=== PATIENT | male | born 1965 | race Caucasian/White ===

== ENCOUNTER → 2017-10-31 | Outpatient (CLI) | payer OTHER ==
[~2017-10-31] MED LIST: NOHOMEMEDICATIONS
--- NOTE | 2017-10-31 14:29 | 2DMMODE ---
[place] [address] 2 D/M-MODE ECHOCARDIOGRAM Name: MARIBELL JORDAN Room: [facility]#: [id number] Admission: 10/31/17 Attend Phys: Fran Rollins, Discharge: Date of : 61 Date of Service: 10/31/17 1428 Report #: [id number] THIS REPORT FOR: //name// APPROVED REPORT Study performed: 10/31/2017 08:13:28 EXAM: Comprehensive 2D, Doppler, and color-flow Echocardiogram Patient Location: Out-Patient Status: routine BSA: 2.07 HR: 80 bpm BP: 140/98 mmHg Other Information Study Quality: Good Indications Abnormal ECG 2D Dimensions LVEF(%): 73.41 (>50%) IVSd: 17.75 (7-11mm) LVOT Diam: 20.10 (18-24mm) LVDd: 45.37 mm PWd: 11.28 (7-11mm) Ascending Ao: 31.56 (22-36mm) LVDs: 26.19 (25-40mm) Aortic Root: 28.78 mm Varma's LVEF: 73.41 % Volumes Left Atrial Volume (Systole) LA ESV Index: 15.40 mL/m2 Aortic Valve AoV Peak Martinez.: 0.99 m/s AO Peak Gr.: 3.92 mmHg LVOT Max P.00 mmHg AO Mean Gr.: 2.16 mmHg LVOT Mean P.54 mmHg LVOT Max V: 0.87 m/s AO V2 VTI: 17.13 cm LVOT Mean V: 0.57 m/s ARCENIO (VTI): 3.17 cm2 LVOT V1 VTI: 17.10 cm Mitral Valve E/A Ratio: 0.73 MV Decel. Time: 174.04 [place] [address] 2 D/M-MODE ECHOCARDIOGRAM Name: MARIBELL JORDAN Room: [facility]#: [id number] Admission: 10/31/17 Attend Phys: Fran Rollins, Discharge: Date of : 61 Date of Service: 10/31/17 1428 Report #: [id number] MV E Max Martinez.: 0.51 m/s MV PHT: 50.47 ms MVA (PHT): 4.36 cm2 TDI E/Lateral E': 10.20 E/Medial E': 10.20 Medial E' Martinez.: 0.05 m/s Lateral E' Martinez.: 0.05 m/s Pulmonary Valve PV Peak Martinez.: 0.96 m/s PV Peak Gr.: 3.68 mmHg Left Ventricle The left ventricle is normal size. There is normal LV segmental wall motion. Moderate basal septal hypertrophy is present. Apical hypertrophy is present. Left ventricular systolic function is normal. The left ventricular ejection fraction is within the normal range. LVEF is 55-60%. Grade I - abnormal relaxation pattern. Right Ventricle The right ventricle is normal size. The right ventricular systolic function is normal. Atria The left atrium size is normal. The right atrium size is normal. Aortic Valve The aortic valve is normal in structure. Mild aortic regurgitation. There is no aortic valvular stenosis. Mitral Valve The mitral valve is normal in structure. There is no mitral valve regurgitation noted. No evidence of mitral valve stenosis. Tricuspid Valve The tricuspid valve is normal in structure. There is no tricuspid valve regurgitation noted. Pulmonic Valve The pulmonary valve is normal in structure. Mild pulmonic regurgitation. Great Vessels The aortic root is normal in size. IVC is normal in size and collapses with >50% [place] [address] 2 D/M-MODE ECHOCARDIOGRAM Name: MARIBELL JORDAN Room: [facility]#: [id number] Admission: 10/31/17 Attend Phys: Fran Rollins, Discharge: Date of : 61 Date of Service: 10/31/17 1428 Report #: [id number] Pericardium There is no pericardial effusion. <Conclusion> LVEF is 55-60%. Mild aortic regurgitation. <ELECTRONICALLY SIGNED> By: Higinio Mcgarry MD, [facility] 10/31/17 1428 1428 1428 Higinio Mcgarry MD, [facility] /INF
== END ==
LOC: M.CRD 07:56
DX: I35.1 Nonrheumatic aortic (valve) insufficiency (principal); R94.31 Abnormal electrocardiogram [ECG] [EKG]